=== PATIENT | male | born 1965 | race Hispanic/Latino ===

== ENCOUNTER 2021-11-26 17:17 | Emergency (ER) | payer BC, SELFPAY ==
[2021-11-26 17:18] VITALS: BP 177/101; PULSE 70; RESP 16; TEMP 36.4; O2SAT 98
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
[2021-11-26] MEDS: TETANUS,DIPHTHERIA,AC PERTUSSIS ADULT (0.5 ML) BOOSTRIX IM (18:06)
[2021-11-26] MEDS: KETOROLAC 30 MG/ML VIAL (*BKC) IV PUSH (18:17)
== END 2021-11-26 18:31 | disposition home or self-care (01) ==
PROVIDERS: Emergency Provider Nurse Practitioner Family
DX: T20.24XA Burn of second degree of nose (septum), initial encounter (principal); T31.0 Burns involving less than 10% of body surface; Z23 Encounter for immunization; X03.0XXA Exposure to flames in controlled fire, not in building or structure, initial encounter
CPT/HCPCS: 90471; 90715; 96374; 99284; J1885

== ENCOUNTER 2022-04-09 16:53 | Emergency (ER) | payer BC, SELFPAY ==
[2022-04-09 17:13] VITALS: BP 155/101; PULSE 78; RESP 16; TEMP 37.4; O2SAT 99
--- NOTE | 2022-04-09 17:26 | ED.EXTPRO ---
HPI - Extremity Problem General Stated complaint: right leg pain Time Seen by Provider: 04/09/22 17:26 Source: patient and RN notes reviewed Mode of arrival: ambulatory Limitations: no limitations History of Present Illness HPI Narrative: 56-year-old male presents to the [facility] with complaints of right leg pain with redness from mid calf to groin. Firm area to the medial aspect right knee. states that the redness started to the medial aspect of the knee on Friday, 2 days ago and is gradually gotten worse. Pain with walking. Denies any injury. Area is hot to touch. Denies fevers. Denies any past medical or surgical history Related Data Allergies Allergy/AdvReac Type Severity Reaction Status Date / Time No Known Allergies Allergy Verified 04/09/22 17:42 Review of Systems Review of Systems: All systems reviewed & are unremarkable except as noted in HPI and below Constitutional: Constitutional: Reports no additional constitutional complaints, Denies chills and Denies fever(s) Eyes: Eyes: Reports no additional eye complaints ENT: Reports system reviewed and no additional complaints, except as documented Cardiovascular: Cardiovascular: Reports no additional cardiovascular complaints Respiratory: Respiratory: Reports no additional respiratory complaints Gastrointestinal: Gastrointestinal: Reports no additional gastrointestinal complaints Musculoskeletal: Musculoskeletal: Reports no additional musculoskeletal complaints Integumentary/Breasts: Skin/Breast: Reports as per HPI and Reports erythema (Medial right leg) Neurologic: Reports system reviewed and no additional complaints, except as documented Psychiatric: Psychiatric: Reports no additional psychiatric complaints Allergic/Immunologic: Allergic/Immunologic: Reports no additional allergic/immunologic complaints PMFSH Past Medical History Medical History (Updated 04/09/22 @ 17:47 by Alanna Samuel APRN) Patient denies medical problems Surgical History Surgical History (Updated 04/09/22 @ 17:38 by Alanna Samuel APRN) No pertinent past surgical history Social History Social History (Updated 04/09/22 @ 17:39 by Alanna Samuel APRN) Living arrangements: with family Gender identity (if verbalized by the patient): Male Comments At the time of my signature, I reviewed and agree with the nursing past medical, surgical, social, and family history. There is no relevant family history pertinent to the patient complaint. Exam Const: General: healthy appearing, no acute distress, alert and well nourished Nutritional Appearance: well nourished Orientation/consciousness: patient oriented x3 Limitations: no limitations HENMT: Head: normal to inspection Ears: external ears normal Face/Nose/Sinus: Normal external nose present Eyes: General: appearance normal, both eyes and all related structures Conjunctivae: conjunctivae normal Pupils: Equal, round and reactive pupils present Neck: Neck: normal visual inspection, no lymphadenopathy and no meningeal signs Chest: Chest palpation & inspection: normal inspection of the chest Resp: Effort & Inspection: normal respiratory effort and no use of accessory muscles Auscultation: clear to auscultation bilaterally, no crackles, no rales, no rhonchi and no wheezes Cardio: Rate: regular rate Rhythm: regular rhythm Skin: General skin exam: normal color Rashes: no rashes Wounds: no wounds Other: Walking with a limp gait secondary to pain with range of motion of knee. Full body images: 1. Erythema noted 41 x 16cm. Firm hot area noted to distal thigh, medial knee area. Firm indurated area noted distal thigh medial aspect Neuro: General: patient oriented x3, moves all extremities, no meningeal signs and no focal motor deficits Cranial nerves: Yes Equal, round and reactive pupils present Speech: normal speech Gait exam (Neuro): Normal gait present Extrem: General: normal to inspection, full
== END 2022-04-09 17:37 | disposition short-term general hospital (02) ==
PROVIDERS: Emergency Provider Nurse Practitioner
DX: L03.115 Cellulitis of right lower limb (principal)
CPT/HCPCS: 99213; G0463

== ENCOUNTER 2022-04-09 17:53 | Observation (INO) | payer BC, SELFPAY ==
--- NOTE | ~2022-04-09 | US_ITS ---
EXAMINATION: US venous doppler LE RT DATE: 04/09/2022 18:32 INDICATION: Right lower limb pain. TECHNIQUE: Grayscale images without and with compression and Doppler images of the right lower extrem ity veins were obtained. COMPARISON: None FINDINGS: The right common femoral vein, profunda (deep) femoral vein, femoral vein, popliteal vein, peroneal v ein, posterior tibial veins, gastrocnemius vein, and greater saphenous vein are patent. IMPRESSION: 1. Patent right lower extremity veins. No evidence of deep venous thrombosis. Reviewed, dictated and finalized at location K.
[2022-04-09 18:39] VITALS: BP 162/114; PULSE 75; RESP 14; TEMP 36.7; O2SAT 98
--- NOTE | 2022-04-09 21:49 | ED.LOWEXIN ---
HPI - Extremity Injury (Lower) General Chief Complaint: Extremity Injury, Lower <Liliana Schneider PA-C - Last Filed: 04/09/22 23:59> Stated Complaint: Right Leg, Possible Blood Clot <Liliana Schneider PA-C - Last Filed: 04/09/22 23:59> Time Seen by Provider: 04/09/22 21:28 <Liliana Schneider PA-C - Last Filed: 04/09/22 23:59> Source: patient <Liliana Schneider PA-C - Last Filed: 04/09/22 23:59> Mode of arrival: ambulatory <Liliana Schneider PA-C - Last Filed: 04/09/22 23:59> Limitations: language barrier (patient's significant other is translating which he prefers) <Liliana Schneider PA-C - Last Filed: 04/09/22 23:59> History of Present Illness HPI Narrative: This is a 56 year old male that presents to the ER for redness and swelling of the right upper leg present over the last 2 days. Reports no recent injury or trauma. The redness has spread from the medial knee up to his groin. He was seen at Urgent care and sent to the ER for further evaluation. Denies fever. <Liliana Schneider PA-C - Last Filed: 04/09/22 23:59> Related Data Allergies/Adverse Reactions: Allergies Allergy/AdvReac Type Severity Reaction Status Date / Time No Known Allergies Allergy Verified 04/09/22 17:42 <Liliana Schneider PA-C - Last Filed: 04/09/22 23:59> Review of Systems Review of Systems: CONSTITUTIONAL: Denies fever SKIN: Reports erythema <Liliana Schneider PA-C - Last Filed: 04/09/22 23:59> All systems reviewed & are unremarkable except as noted in HPI and below <Liliana Schneider PA-C - Last Filed: 04/09/22 23:59> PMFSH Past Medical History Medical History: Medical History (Updated 04/09/22 @ 23:59 by Liliana Schneider PA-C) Patient denies medical problems <Liliana Schneider PA-C - Last Filed: 04/09/22 23:59> Surgical History Surgical History: Surgical History (Updated 04/09/22 @ 17:38 by Alanna Samuel APRN) No pertinent past surgical history <Liliana Schneider PA-C - Last Filed: 04/09/22 23:59> Social History Social History: Social History (Updated 04/09/22 @ 21:52 by Liliana Schneider PA-C) Smoking status: Former smoker Gender identity (if verbalized by the patient): Male Spiritual care concerns: No <Liliana Schneider PA-C - Last Filed: 04/09/22 23:59> Exam Narrative: GENERAL: Well-appearing, well-nourished, and in no acute distress. HEAD: Normocephalic, atraumatic. EYES: EOMI. CHEST: Clear to auscultation. No respiratory distress. No wheezes rales or rhonchi HEART: Regular rate and rhythm. No murmur heard. Normal peripheral pulses. EXTREMITIES: Normal range of motion. Mild edema with overlying redness to the right medial knee extending to the right groin. Normal DP pulse. Normal sensation SKIN: Warm, dry, no rash. NEURO: No focal deficits. Alert and oriented x3. PSYCH: Normal mood and affect <Liliana Schneider PA-C - Last Filed: 04/09/22 23:59> Course [employer] SUPERVISOR/PA Physician Supervision For this patient encounter, I reviewed the [employer] SUPERVISOR or PA documentation, treatment plan, and medical decision making <Tang Sim MD - Last Filed: 04/10/22 03:57> Consultations Consultation #1: Spoke with hospitalist about patient and work-up who accepts admission <Liliana Schneider PA-C - Last Filed: 04/09/22 23:59> Date: 04/09/22 <Liliana Schneider PA-C - Last Filed: 04/09/22 23:59> Vital Signs Vital signs: Vital Signs Temperature 98.1 F 04/09/22 18:39 Pulse Rate 75 04/09/22 18:39 Respiratory Rate 14 04/09/22 18:39 Blood Pressure 162/114 H 04/09/22 18:39 Pulse Oximetry 98 04/09/22 18:39 Oxygen Delivery Room Air 04/09/22 18:39 Temperature 98.1 F 04/09/22 18:39 Pulse Rate 68 04/09/22 22:46 Respiratory Rate 18 04/09/22 22:46 Blood Pressure 165/110 H 04/10/22 02:16 Pulse Oximetry 98 04/10/22 02:16 Oxygen Delivery Room Air 04/09/22 18:39 <Liliana Schneider PA-C - Last Filed: 04/09/22 23:59> Vital Signs
[2022-04-09 22:09] LABS: Basophils Absolute Auto 0.1 K/mm3 (0.0-0.1); Basophils Percent Auto 0.9 % (0.2-1.2); Eosinophils Absolute Auto 0.2 K/mm3 (0-0.3); Eosinophils Percent Auto 1.4 % (0-4.4); Hematocrit 45.6 % (42.0-52.0); Hemoglobin 15.8 g/dL (14.0-18.0); Immature Granulocyte Absolute 0.07 K/mm3 (0.00-0.031); Immature Granulocyte Percent A 0.5 % (0-0.5); Lymphocytes Absolute Auto 4.08 K/mm3 (0.9-3.2); Lymphocytes Percent Auto 26.9 % (18.3-44.2); Mean Corpuscular HGB Conc 34.6 g/dl (32-36); Mean Corpuscular Volume 86.7 fl (80-100); Monocytes Absolute Auto 1.9 K/mm3 (0.1-0.6); Monocytes Percent Auto 12.5 % (2.6-8.5); Neutrophils Absolute Auto 8.8 K/mm3 (1.3-6.7); Neutrophils Percent Auto 57.8 % (45.5-73.1); Platelet Count Result 238 k/mm3 (150-375); Red Blood Count 5.26 M/mm3 (4.6-6.20); Red Cell Distribution Width 13.3 % (11.5-14.5); White Blood Count 15.2 K/mm3 (4.5-10.0)
[2022-04-09 22:23] LABS: Anion Gap 11 mmol/L (8-16); Blood Urea Nitrogen 11 mg/dL (9-20); CRP 3.9 mg/dL (<1.0); Calcium 9.2 mg/dL (8.4-10.2); Carbon Dioxide 25 mmol/L (22-30); Chloride 104 mmol/L (98-107); Estimated CRCL calculation 496 ml/min; Estimated Glomerular Filt Rate > 60; Glucose 108 mg/dL (65-110); Potassium 4.1 mmol/L (3.4-5.0); Sodium 140 mmol/L (137-145)
[2022-04-09 22:41] LABS: Erythrocyte Sedimentation Rate 22 mm/hr (0-20)
[2022-04-09 22:46] VITALS: BP 152/106; PULSE 68; RESP 18; O2SAT 99
[2022-04-09 23:41] VITALS: BP 189/115; O2SAT 100
[2022-04-09 23:46] VITALS: BP 172/133; O2SAT 99
[2022-04-10 00:02] VITALS: BP 182/129; O2SAT 99
[2022-04-10] MEDS: CLINDAMYCIN 900 MG/D5W 50 ML 900 MG/50 ML PIGGYBACK 50 MG IVPB ×3 (00:28→13:44)
[2022-04-10 00:46] VITALS: BP 165/106; O2SAT 100
[2022-04-10 01:02] VITALS: BP 138/107; O2SAT 100
[2022-04-10 01:56] LABS: SARS-CoV-2 RNA PCR Negative
[2022-04-10 02:16] VITALS: BP 165/110; O2SAT 98
[2022-04-10 03:25] VITALS: BMI 31.6
--- NOTE | 2022-04-10 03:38 | ADMGEN ---
This patient, Adolph Laurent, was admitted to [facility] Surg Room 312-01. Patient/family oriented to hospital policies and general routines including ID bracelet, bed and alarms, visiting hours, pain management, procedures, bathroom and other care routines, personal items, smoking policy, room service/diet, and visiting hours. Information on how to activate the Rapid Response Team has been discussed. Patient/Family are encouraged to report perceived risks to care and to ask questions if they do not understand what they are told or what they should do.
[2022-04-10 04:23] VITALS: BP 163/89; PULSE 71; RESP 18; TEMP 36.4; O2SAT 98
--- NOTE | 2022-04-10 13:12 | PM.DS ---
DS: Admitting Diagnosis Discharge Date April 10, 2022 Admitting Diagnosis cellulitis DS: Discharge Diagnosis Discharge Diagnosis (1) Cellulitis: Qualifiers: Laterality: right Site of cellulitis: extremity Site of cellulitis of extremity: lower extremity Qualified Code(s): L03.115 - Cellulitis of right lower limb Code(s): L03.90 - Cellulitis, unspecified Status: Acute DS: Summary Hospital Course Hospital Course: patient was admitted for right lower extremity cellulitis. This was above the knee on the 5. No wound or any sort of some folliculitis or anything like that. Started on clindamycin did exceptionally well. He can be discharged home. His erythema is very minimal and is hardly warm to touch. Time Spent with Patient Time attestation: Total time spent providing and/or coordinating discharge services: Exam Narrative: General: alert and oriented Psych: appropriate mood nad affect Eyes: PERRLA Neck: Trachea midline, no new lesions Skin: no changes Lungs: CTA Cardiac: Normal S1,S2, no MGR ABD: soft, nd, nt, nbs Ext: no new lesions, no cce erythema much better Vasc: Pulses intact DS: Data Data Completed and Pending Labs on day of discharge: Labs from last 24 hours 04/10/22 04/09/22 04/09/22 01:14 21:59 21:59 WBC 15.2 H RBC 5.26 Hgb 15.8 Hct 45.6 MCV 86.7 MCH 30.0 MCHC 34.6 RDW 13.3 Plt Count 238 MPV 9.0 Immature Gran % (Auto) 0.5 Neut % (Auto) 57.8 Lymph % (Auto) 26.9 [place] % (Auto) 12.5 H Eos % (Auto) 1.4 Baso % (Auto) 0.9 Lymph # (Auto) 4.08 H [place] # (Auto) 1.9 H Eos # (Auto) 0.2 Baso # (Auto) 0.1 Abs Immat Gran (auto) 0.07 H Absolute Neuts (auto) 8.8 H Absolute Nucleated RBC 0.0 Nucleated RBC % 0.0 ESR 22 H Sodium 140 Potassium 4.1 Chloride 104 Carbon Dioxide 25 Anion Gap 11 BUN 11 Creatinine 0.80 Estim Creat Clear Calc 496 Estimated GFR > 60 Glucose 108 Calcium 9.2 C-Reactive Protein 3.9 H SARS-CoV-2 RNA (RT-PCR) Negative Discharge Plan Discharge Attending physician on discharge: Maurice Campos Consulting providers: Liliana Schneider Discharging Clinician: Maurice Campos Patient Disposition: Home, Self-Care Activity: no preference Diet: as tolerated Patient Instructions: Antibiotic Form Stand Alone Forms: General Discharge Information Follow-up/Referrals: UNKNOWN,DOCTOR [Primary Care Provider] - Discharge Medications: New clindamycin HCl 300 mg capsule 300 mg PO Q6H 7 Days Qty: 28 0RF Date of admission: 04/09/22 23:52 Primary Care Provider: UNKNOWN,DOCTOR Admitting Provider: Brook Triana V. Attending physician on admission: Brook Triana V. Condition: Stable
--- NOTE | 2022-04-10 13:14 | PM.IMHP ---
H&P: HPI History of Present Illness Date/Time: 04/10/22 13:14 Chief Complaint: Right lower extremity erythema. , warm to touch. No additional complaints Review of Systems Review of Systems: 10 point review of systems negative [facility] Past Medical History Medical History Patient denies medical problems Surgical History Surgical History No pertinent past surgical history Social History Social History Smoking status: Former smoker Gender identity (if verbalized by the patient): Male Spiritual care concerns: No Meds Home Medications and Allergies Allergies Allergy/AdvReac Type Severity Reaction Status Date / Time No Known Allergies Allergy Verified 04/09/22 17:42 Vital Signs Vital Signs - 24 hr 04/09/22 18:39 04/09/22 22:46 04/09/22 23:41 Temperature 98.1 F Pulse Rate 75 68 Respiratory Rate 14 18 Blood Pressure 162/114 H 152/106 H 189/115 H Pulse Oximetry 98 99 100 Oxygen Delivery Room Air 04/09/22 23:46 04/10/22 00:02 04/10/22 00:46 Temperature Pulse Rate Respiratory Rate Blood Pressure 172/133 H 182/129 H 165/106 H Pulse Oximetry 99 99 100 Oxygen Delivery 04/10/22 01:02 04/10/22 02:16 04/10/22 04:23 Temperature 97.6 F Pulse Rate 71 Respiratory Rate 18 Blood Pressure 138/107 H 165/110 H 163/89 H Pulse Oximetry 100 98 98 Oxygen Delivery 04/10/22 07:57 Temperature Pulse Rate Respiratory Rate Blood Pressure Pulse Oximetry Oxygen Delivery Room Air H&P: Results Labs Labs: Short CBC 04/09/22 Range/Units 21:59 WBC 15.2 H (4.5-10.0) K/mm3 Hgb 15.8 (14.0-18.0) g/dL Hct 45.6 (42.0-52.0) % Plt Count 238 (150-375) k/mm3 BMP 04/09/22 21:59 Sodium 140 Potassium 4.1 Chloride 104 Carbon Dioxide 25 BUN 11 Creatinine 0.80 Glucose 108 Calcium 9.2 Assessment and Plan Assessment and plan (1) Cellulitis: Qualifiers: Laterality: right Site of cellulitis: extremity Site of cellulitis of extremity: lower extremity Qualified Code(s): L03.115 - Cellulitis of right lower limb Code(s): L03.90 - Cellulitis, unspecified Status: Acute Assessment and Plan: IV antibiotics
== END 2022-04-10 14:57 | disposition home or self-care (01) ==
LOC: ANHED 23:59 → ANH3MEDSUR 04-10 13:03
PROVIDERS: Physician Assistant; Admitting Provider Internal Medicine; Emergency Provider Emergency Medicine; Visit Provider Chiropractor
DX: L03.115 Cellulitis of right lower limb (principal); D72.829 Elevated white blood cell count, unspecified; Z20.822 Contact with and (suspected) exposure to COVID-19; Z87.891 Personal history of nicotine dependence
CPT/HCPCS: 36415; 80048; 85025; 85652; 86140; 87040; 93971; 96365; 96366; 96375; 96376; 99285; C9803; G0378; J0690; U0003; U0005